=== PATIENT | female | born 1995 | race African-American/Black ===

== ENCOUNTER → 2019-06-16 | Outpatient (CLI) | payer BC ==
--- NOTE | 2019-06-16 15:32 | KCIC ---
MRI Brain without contrast History: Migraine headaches, memory changes, confusion, fatigue Technique: Multiplanar, multisequential noncontrast MR imaging was performed of the brain. Comparison: None Findings: There is no evidence of recent infarct or cytotoxic edema. The ventricles, sulci, and cisterns are within normal limits in size and configuration. There is no significant midline shift, intraaxial mass effect, or focal abnormal extra-axial fluid collection. There is no significant signal abnormality of the brain parenchyma. There is preservation of the major intracranial flow-voids at the skull base. The mastoid air cells are aerated. The cerebellar tonsils are normal in location. Slightly convex superior margin of the pituitary gland can be considered within normal limits in a patient this age, not considered significantly enlarged. There is mild right greater than left maxillary sinus mucosal thickening, also patchy mild bilateral ethmoid air cell, as well as mild sphenoid and frontal sinus mucosal thickening. Heterogeneity of the marrow of the clivus is likely due to residual red marrow. Impression: 1. There is no significant intracranial abnormality. 2. There is mild bilateral paranasal sinus mucosal thickening. Electronically signed by: Lucho Beauchamp MD (06/16/2019 3:29 PM) [facility]
== END ==
LOC: KCIC MRI 13:36
PROVIDERS: ATTEND Registered Nurse
DX: G47.19 Other hypersomnia (principal); G43.909 Migraine, unspecified, not intractable, without status migrainosus; R41.3 Other amnesia
CPT/HCPCS: 70551

== ENCOUNTER → 2019-06-28 | Outpatient (CLI) | payer BC ==
[~2019-06-28] MED LIST: METO25TA2 PO; MV-M1TAB7 PO; NORE-81 PO; TOPI25TA52 PO
--- NOTE | 2019-06-28 08:51 | KCIC ---
EXAM: Lumbar spine MRI without contrast. HISTORY: Lower back pain. Radiculopathy. TECHNIQUE: Multiplanar, multisequence magnetic resonance imaging of the lumbar spine was performed without contrast. COMPARISON: None. FINDINGS: There is no listhesis. The vertebral bodies are normal in height and the disc spaces are preserved. There is no suspicious osseous lesion. The conus terminates at L1. There is an 11 x 9 x 6 mm synovial cyst along the posterior right facet joint at L4-L5. There is no foraminal or central canal stenosis. IMPRESSION: 1. Small synovial cyst along the posterior aspect of the right facet joint at L4-L5. 2. No significant foraminal or central canal stenosis. Electronically signed by: Jazmine Valenzuela MD (06/28/2019 8:48 AM) [id number]
== END | disposition home or self-care (01) ==
LOC: KCIC MRI 07:46
PROVIDERS: ATTEND Registered Nurse
DX: M71.38 Other bursal cyst, other site (principal); M54.10 Radiculopathy, site unspecified; M71.30 Other bursal cyst, unspecified site
CPT/HCPCS: 72148

== ENCOUNTER → 2019-07-09 | Day surgery (SDC) | payer BC ==
[~2019-07-09] MED LIST changes: +IV RINGERS,LACTATED 1000ML 1,000 ML IV SCH; +LIDOCAINE 2% PF 5 ML VIAL. ONE; +PROPOFOL 40 ML IV ONE
[2019-07-09 09:00] VITALS: BP 100/59
--- NOTE | 2019-07-12 16:06 | PATHOLOGY ---
[facility] Accession Number: [id number] . 01 Material submitted: . colon - RANDOM COLON BIOPSIES . 01 Clinical history: . Abdominal pain, diarrhea . 02 Diagnosis: Colonic mucosa, random colon biopsies: - No significant pathologic abnormalities. . (JPM:mm; 07/12/2019) [facility] 07/12/2019 0938 Local . 02 Comment: Sections of the random colon biopsy reveal multiple segments of colonic mucosa containing several mucosal-associated lymphoid aggregates. There is no evidence of a chronic destructive colitis, lymphocytic colitis or collagenous colitis. . (JPM:mml; 07/12/2019) . 02 Electronically signed: . Kobe Adhikari MD, Pathologist NPI- [id number] . 01 Gross description: . The specimen is received in formalin, labeled "Nikyolanda Rodger, random colon biopsies". Received are multiple (greater than 10) segments of pale pabon soft tissue ranging in size from 0.2 to 1.1 cm in maximum dimensions. The specimen is submitted entirely in cassette A1. ([facility]; 07/09/2019) QA/QA 07/09/2019 1708 Local . 02 Pathologist provided ICD-10: R10.9 . 02 CPT . 970555 Specimen Comment: A courtesy copy of this report has been sent to [phone] Specimen Comment: [id number] Specimen Comment: Report sent to / DR MOTT Performed at: 01 [facility] [address], [place] [id number] MD David Lara MD Phone: [phone] Performed at: 02 [facility] [address], [place] [id number] MD Kobe Adhikari MD Phone: [phone]
== END ==
LOC: SURG 07:35
PROVIDERS: ATTEND Internal Medicine Gastroenterology
DX: R19.7 Diarrhea, unspecified (principal); K64.0 First degree hemorrhoids; K63.89 Other specified diseases of intestine; F41.9 Anxiety disorder, unspecified; F32.9 Major depressive disorder, single episode, unspecified; Z88.8 Allergy status to other drugs, medicaments and biological substances
CPT/HCPCS: 45380; 81025; 88305; J2001; J2704; J3490